=== PATIENT | female | born 1955 | race Caucasian/White ===

== ENCOUNTER 2016-11-30 21:09 | Inpatient (IN) | payer OTHER ==
[~2016-11-30] VITALS: Ht 162.6 cm; Wt 90.4 kg
--- NOTE | 2016-11-30 23:30 | NUR ---
Pt Admission to [facility] Room 2030 from [facility] Pt arrived at approximately 2230 on a gurney to room 2030 with Heparin running at 1100 Units/HR on the Cardiac Heparin Protocol. Pt is AOx3, ALEXIS, ambulatory, VSS. Pt's medication reconciliation is completed and there are some medications that have been DC'd due to the medication prolonging the QT. Pt has been made aware of this but does not know which medications they are at this time. Pt does have Sjgren's syndrome, which causes the pt to have severe dry mouth and dry eyes. Pt takes [place] for the Sjgren's syndrome.
[2016-11-30 23:41] VITALS: BP 145/84; PULSE 73; RESP 16; O2SAT 100
[2016-12-01] VITALS (17 sets, daily range): BP systolic 100–147; BP diastolic 52–84; PULSE 74–84; RESP 14–20; O2SAT 95–99
--- NOTE | 2016-12-01 00:09 | PCM.HPMED ---
Subjective Date of Service Dec 01, 2016 Primary Provider: Admitting Physician: Neil Oliver MD Primary Care Physician: Douglas Cameron MD Attending Physician: Neil Oliver MD Chief Complaint: Chest pain History of Present Illness: Ms. Krishna is a 61-year-old female with past medical history of CAD with prior DC status post stent placement in August 2007, Sjogren syndrome, hypertension. Presented to [facility] secondary to chest pain. Patient states no recent history of angina, however this morning she was undergoing physical therapy and developed chest discomfort/pain which was located on the left side of her chest and radiated to her left arm, with accompanying nausea. She states this felt very similar to her previous angina/DC almost 10 years prior. She states her chest pain is a 3 out of 10 located midsternally, pain increases on palpation. She also states headache, chronic in nature. Nausea with movement. Denies abdominal complaints. EKG and [place] showed nonspecific ST changes and an initial troponin was 0.06 and repeat troponin was 1.22. She was given ASA, beta noelle, nitroglycerin paste (could not dissolve sublingual tablet secondary to Sjogren's), & morphine. Review of Systems: A comprehensive review of systems was conducted with the patient and found to be negative except as above in the history of present illness. Allergies Coded Allergies: bupropion (Verified Allergy, Unknown, 12/01/16) Home Medications Atorvastatin 40 mg by mouth daily Fluticasone nasal spray 2 sprays daily Gabapentin 300 mg in the morning, 900 mg in the evening Levothyroxine 125 g daily [place] 300 mg in the evening Losartan 12.5 mg by mouth twice a day Metoprolol 12.5 mg by mouth daily Prazosin 5 mg by mouth daily Protriptyline 10 mg daily Prozac 20 mg daily Topamax 100 mg daily Trazodone 50 mg in the evening PMH Sjogren syndrome Hypertension 032 Bilateral feet fracture Spondylolisthesis PTSD Borderline personality disorder Depressive disorder Migraine headaches Surgical History Cholecystectomy Vaginal hysterectomy Right Oophorectomy Family History Father: Osteoarthritis, age 79 complications CHF Mother: age 70 of ovarian cancer 2 Sisters: Osteoarthritis, goiter, tremor, reflux disease, bone marrow dyscrasia , personality disorder, eating disorder 2 children sons: alcohol abuse, smoking, diabetes Social History Hx Alcohol Use: Yes (rare) Hx Substance Use: No Hx Tobacco Use: No Living Arrangement: with Family Exam Vital Signs Vital Sign - Last Date Time Temp Pulse Resp B/P Pulse Ox O2 Delivery O2 Flow Rate FiO2 11/30/16 23:41 36.9 73 16 145/84 100 Room Air Exam General: Sitting up in hospital bed in no acute distress, well-developed, well- nourished, appropriately interactive HEENT: Normocephalic, atraumatic. External ears without defect. Pupils equal, round, and reactive to light and accommodation. Anicteric sclerae, moist conjunctivae, and no lid lag. Oropharynx free of erythema and cobble stoning with moist mucosa. Neck: Supple with full range of motion. No jugular venous distension. Cardiovascular: Regular rate and rhythm with no murmurs, rubs, or gallops appreciated Pulmonary: Clear to auscultation bilaterally with no crackles, wheezes, or rhonchi. Normal respiratory effort with no use of accessory muscles. Abdomen: Bowel tones present. Soft, nontender, nondistended. Extremities: No clubbing, cyanosis, edema, or lymphadenopathy appreciated. Skin: Normal temperature, turgor, and texture; no rash, ulcers, or subcutaneous nodules appreciated. Neurological: Cranial nerves grossly intact. Psychiatric: Normal mood and affect. Alert and oriented to person, place, and time. Lab and Diagnostics X-Rays, CTs and MRIs Per [facility]: CT angiogram chest Impression: 1. No pulmonary embolus 2. No aortic aneurysm or dissection 3. Mild mosaic attenuation, otherwise unremarkable lungs CXR 1 view Impression: Normal single view chest 12-lead ECG Per [facility] Prolonged QT ST depression slight inferior leads. No ST elevation Assessment & Plan Ms. Krishna is a 61-year-old female with past medical history of CAD with prior DC status post stent placement in August 2007 admitted for NSTEMI NSTEMI. Trazodone admission. Ongoing - Cardiology consult, Dr. Jefferson - Continue home ASA - Continue beta noelle - Continue nitroglycerin paste - Continue morphine when necessary - Continue home atorvastatin - Continue heparin drip Hypertension. Present on admission. Ongoing - Continue home losartan - Continue home metoprolol - Continue home prazosin Hyperlipidemia. Present on admission. Ongoing - Continue home atorvastatin Multiple psychiatric diagnoses. Present on admission. Ongoing - PTSD, borderline personality disorder, depressive disorder - Hold trazodone secondary to possible QT prolongation Sjogren syndrome. Present on admission. Ongoing - Continue home pilocarpine Migraine headaches. Present on admission. Ongoing - Hold home topiramate secondary to QT prolongation Insomnia. Present on admission. Ongoing - Hold home Vistaril secondary to QT prolongation Hypothyroidism. Present on admission. Ongoing - Continue home Synthroid Patient Status: Patient was admitted under inpatient status with expected length of stay greater than two midnights due to severity of presenting symptoms , risk of adverse event, and complexity of treatment plan. Pain Evaluation: Adequate Pain Control VTE Prophylaxis: Other (on cardiac protocol heparin) Resuscitation Status: CPR: Attempt Resuscitation Attending Statement The patient was seen and examined together with Dr. Holt on 12/01 and I agree with the history, exam and plan as outlined in the note above. MARLEE HOLT DO Dec 01, 2016 00:09 Neil Oliver MD Dec 01, 2016 04:05
[2016-12-01] MEDS ORDERED: Ondansetron 2 mg/mL 2 mL Inj IVPUSH PRN ×2 (00:10→14:10)
[2016-12-01] MEDS ORDERED: Alum-Mag Hydrox-Simeth 30 mL Suspension PO PRN (00:10)
[2016-12-01] MEDS ORDERED: Polyethylene Glycol (PEG) 17 Gm Powder PO PRN (00:10)
[2016-12-01] MEDS ORDERED: HYDR-3090 PO (00:26)
[2016-12-01] MEDS ORDERED: Heparin 5,000 Unit/mL Inj IVPUSH PRN (00:30)
[2016-12-01] MEDS ORDERED: Heparin 25K Unit/500mL 0.45 NS 25,000 UNIT in IV Premix 1 EACH IV SCH (00:30)
[2016-12-01] MEDS ORDERED: HYDR-3797 PO (00:32)
[2016-12-01] MEDS ORDERED: HYDR-3089 PO (01:07)
[2016-12-01] MEDS ORDERED: ASPI-973 PO (01:22)
[2016-12-01] MEDS ORDERED: PROT5TAB PO (01:22)
[2016-12-01] MEDS ORDERED: FLUO20TA28 PO (01:22)
[2016-12-01] MEDS ORDERED: LOSA25TA21 PO (01:22)
[2016-12-01] MEDS ORDERED: TRAZ-115 PO (01:22)
[2016-12-01] MEDS ORDERED: PILO5TAB2 PO (01:22)
[2016-12-01] MEDS ORDERED: HYDR200T PO (01:22)
[2016-12-01] MEDS ORDERED: ATOR40TA69 PO (01:22)
[2016-12-01] MEDS ORDERED: PRAZ5CAP3 PO (01:22)
[2016-12-01] MEDS ORDERED: GABA-502 PO ×2 (01:22)
[2016-12-01] MEDS ORDERED: METO25TA6 PO (01:22)
[2016-12-01] MEDS ORDERED: LITH300T2 PO (01:22)
[2016-12-01] MEDS ORDERED: TOPI-31 PO (01:22)
[2016-12-01] MEDS ORDERED: LEVO125T94 PO (01:22)
[2016-12-01] MEDS ORDERED: Hydroxychloroqine 200 mg Tablet PO SCH (02:40)
[2016-12-01] MEDS ORDERED: hydrOXYzine Pamoate 25 mg Capsule PO PRN (02:40)
--- NOTE | 2016-12-01 06:30 | NUR ---
Nitro Paste Pt had nitropaste applied to the chest at 2140 while still at [place]. Pt's nitro paste was removed at 0600 this AM.
[2016-12-01] MEDS ORDERED: PROTRIPTYLINE PO SCH ×2 (08:30→13:20)
[2016-12-01 09:04] LABS: BASOPHILS % (AUTO) 0.3 % (0-3); EOSINOPHILS % (AUTO) 4.3 % (0-5); MONOCYTES % (AUTO) 7.3 % (4-12); Mean Corpuscular Hemoglobin 30.2 pg (27.0-35.0); Mean Corpuscular Volume 94.8 fL (81-100); NEUTROPHILS % (AUTO) 74.5 % (40-74); Platelet Count 379 bil/L (150-400)
--- NOTE | 2016-12-01 09:20 | NUR ---
Chest pain Stat EKG/Dr. Ortez @ bedside. Labs ordered. Heparin gtt infusing.
[2016-12-01 09:30] LABS: INR 0.95 ratio
--- NOTE | 2016-12-01 09:45 | NUR ---
To Battalion Fire Chief
[2016-12-01] MEDS ORDERED: Heparin 10,000 Unit/1,000 mL NS Premix IV ONE (10:06)
[2016-12-01] MEDS ORDERED: Heparin 1,000 Units/500 mL NS Premix IV ONE (10:06)
[2016-12-01] MEDS ORDERED: Heparin 1,000 Unit/mL 10 mL Inj ONE ×2 (10:06→10:52)
[2016-12-01] MEDS ORDERED: 0.9% Sodium Chloride 1,000 ML ONE (10:06)
[2016-12-01] MEDS ORDERED: fentaNYL-PF 50 mCg/mL 2 mL Inj ONE ×2 (10:39→11:00)
--- NOTE | 2016-12-01 10:41 | NUR ---
Social Work: Screen D: Per EMR review, pt is a 61 year old female admitted for NSTEMI. Pt is [place] [employer] insurance. PCP is Douglas Cameron MD. NOK is Ananda Krsihna, spouse. Advanced directives not on chart. No Readmit score entered at this time. Pt is currently off the floor for emergent cardiac cath procedure. A: Pt who lives in [place] with her spouse. Pt is I at baseline. P: Anticipate pt to discharge home via POV once medically stable; JACK WINDER to continue to follow pt's clinical course and assess for unmet needs. WALT Maxwell
[2016-12-01] MEDS ORDERED: Nitroglycerin 50,000 mcg/250 mL D5W Premix IV ONE (11:10)
[2016-12-01] MEDS ORDERED: Abciximab Bolus 2 mg/mL 5 mL Inj ONE (11:37)
[2016-12-01] MEDS ORDERED: [UNRECOGNIZED DRUG - OTHER] IV SCH ×2 (11:55)
[2016-12-01] MEDS ORDERED: ABCIXIMAB IV SCH ×2 (11:55)
[2016-12-01] MEDS ORDERED: Abciximab Bolus 2 mg/mL 5 mL Inj IV ONE (11:55)
[2016-12-01] MEDS ORDERED: Lidocaine 1%/Epi 1:100,000 30 mL MDV ONE (12:18)
--- NOTE | 2016-12-01 12:35 | NUR ---
Returned post CVL w/ Stent for CCU Recovery Rt groin starclose; slight ooze. (Rheopro bolus given in bundle tier and labeler, gtt infusing now.) Distal DPs 1+, palp, equal. Pt drowsy, denies pain or discomfort., VVS w/ BP 129/71, SR 84, no ectopy. Rm air sat 95%, resps 16. @ bedside.
--- NOTE | 2016-12-01 13:32 | PCM.PNMED ---
Subjective Date of Service Dec 01, 2016 Subjective The patient continued to complain of dull substernal chest pain, dry mouth, and anxiety not significantly changed from baseline upon initial evaluation. Around 9am the patient began to manifest acutely worsening chest pain with ECG changes and was taken emergently to slab miller operator where she was found to have occlusion of the ramus of the LAD proximal to prior stent treated with additional drug eluding stent. Upon re-evaluation following return from the slab miller operator the patient was quite somnolent and her overriding concern was over the resumption of her home psychiatric, analgesic, and migraine prophylactic medication regimen. Comprehensive ROS negative except as outlined above. Exam Vital Signs Vital Sign - Last Date Time Temp Pulse Resp B/P Pulse Ox O2 Delivery O2 Flow Rate FiO2 12/01/16 12:35 36.2 83 16 129/71 95 Room Air Intake and Output 11/30/16 11/30/16 12/01/16 Cumulative From/Thru 15:00 23:00 07:00 11/30/16 23:30 - 12/01/16 06:36 Intake Total 169 ml 169 ml Output Total 800 ml 800 ml Balance -631 ml -631 ml Intake Oral 50 ml 50 ml IV Total 119 ml 119 ml Output Urine Total 800 ml 800 ml Exam Gen: A/O x3 pleasant somnolent woman in moderate acute distress secondary to chest pain and anxiety upon initial evaluation Neck: Supple, non tender, no thyromegaly, no JVD HEENT: PERRL, EOMI, no scleral icterus, no conjunctival pallor, mucous membranes very dry CV: RRR, no murmurs rubs or gallops Resp: Lungs CTA BL, no wheezing rales or rhonchi Abd: Soft, non tender, no organomegaly, no rebound or guarding Extr: No clubbing cyanosis or edema Neuro: CN 2-12 grossly intact, no focal neurologic deficit Psych: Patient acutely anxious and obsessive about medication regimen IVs and Medications IV Fluids 250 ml NS delivered with IV meds Medications Reviewed: Medications were reviewed in detail Lab and Diagnostics Item Value Date Time Red Blood Count 3.88 mil/mm3 L 12/01/16 0855 Hematocrit 36.8 % 12/01/16 0855 Mean Corpuscular Volume 94.8 fL 12/01/16 0855 Mean Corpuscular Hemoglobin 30.2 pg 12/01/16 0855 Mean Corpuscular Hemoglobin Concent 31.8 % L 12/01/16 0855 Red Cell Distribution Width 14.7 % 12/01/16 0855 Neutrophils (%) (Auto) 74.5 % H 12/01/16 0855 Lymphocytes (%) (Auto) 13.5 % L 12/01/16 0855 Monocytes (%) (Auto) 7.3 % 12/01/16 0855 Eosinophils (%) (Auto) 4.3 % 12/01/16 0855 Basophils (%) (Auto) 0.3 % 12/01/16 0855 Estimat Glomerular Filtration Rate 105 mL/min 12/01/16 0855 Calcium Level 9.2 mg/dL 12/01/16 0855 Total Bilirubin 0.4 mg/dL 12/01/16 0855 Aspartate Amino Transf (AST/SGOT) 86 U/L H 12/01/16 0855 Alanine Aminotransferase (ALT/SGPT) 24 U/L 12/01/16 0855 Alkaline Phosphatase 122 U/L 12/01/16 0855 Total Creatine Kinase 1015 U/L H 12/01/16 0855 Creatine Kinase MB 139.3 ng/mL *H 12/01/16 0855 Creatine Kinase MB % 13.7 % H 12/01/16 0855 Total Protein 7.0 g/dL 12/01/16 0855 Albumin 3.6 g/dL 12/01/16 0855 Prothrombin Time 10.2 sec 12/01/16 0855 Prothromb Time International Ratio 0.95 ratio 12/01/16 08 Result Diagram: 12/01/16 0855 12/01/16 08 X-Rays, CTs and MRIs Per [facility]: CT angiogram chest Impression: 1. No pulmonary embolus 2. No aortic aneurysm or dissection 3. Mild mosaic attenuation, otherwise unremarkable lungs CXR 1 view Impression: Normal single view chest 12-lead ECG Per [facility] Prolonged QT ST depression slight inferior leads. No ST elevation Additional Diagnostics Cardiac Cath with official report pending Assessment & Plan Ms. Krishna is a 61-year-old female with past medical history of CAD with prior [place] status post stent placement in August 2007 admitted for NSTEMI. The patient subsequently manifested acute chest worsening of chest pain with concerning ECG changes and was taken to slab miller operator emergently where she was found to have an occlusion of the LAD proximal to prior LAD stent treated with drug eluding stent per report by Dr. Ortez NSTEMI. Trazodone admission. Ongoing - Cardiology consult, Dr. Ortez - Patient abruptly manifested acute chest pain with ECG changes taken to lab clerk emergently by Dr. Ortez - Drug eluding stent placed in the LAD proximal to prior LAD stent - Continue home ASA - Continue beta noelle - Continue nitroglycerin paste - Continue morphine when necessary - Continue home atorvastatin - Fondaparinux per Cardiology orders Hypertension. Present on admission. Ongoing - Continue home losartan - Continue home metoprolol - Continue home prazosin Hyperlipidemia. Present on admission. Ongoing - Continue home atorvastatin Multiple psychiatric diagnoses. Present on admission. Ongoing - PTSD, borderline personality disorder, depressive disorder - Resumed psychiatric meds post Cath - Continue home Prozac - Continue home Protriptyline - Continue home [place] Sjogren syndrome. Present on admission. Ongoing - Continue home pilocarpine Migraine headaches. Present on admission. Ongoing - Resumed topiramate Insomnia. Present on admission. Ongoing - Resumed Vistaril Hypothyroidism. Present on admission. Ongoing - Continued home Synthroid Recent L5-S1 surgical fusion, POA, acute. Active -Patient anti-platelet therapy for this procedure which together with surgical contribution to inflammatory milieu may have contributed to ACS -Continued home opiate analgesia Patient Status: Patient will likely be able to DC home with no needs early next week pending course of recovery from cardiac cath. Pain Evaluation: Adequate Pain Control GI Prophylaxis: H2 noelle VTE Prophylaxis: Other (on cardiac protocol heparin, transitioned to Fondaparinux) Resuscitation Status: CPR: Attempt Resuscitation Attending Statement The patient was seen and examined together with Dr. Nunes on 12/01/2016 and I agree with the history, exam and plan as outlined in the note above. . Darinel Nunes DO Dec 01, 2016 13:32 Lorenzo Kohler MD Dec 01, 2016 17:40
[2016-12-01] MEDS ORDERED: HYDROcodone-APAP 10-325 mg PO PRN (13:45)
[2016-12-01] MEDS ORDERED: 0.9% Sodium Chloride 800 ML IV ONE (14:10)
[2016-12-01] MEDS: HYDROcodone-APAP 5-325 mg Tablet PO PRN (16:29)
--- NOTE | 2016-12-01 18:00 | NUR ---
Starclose site ooze Continuing slow ooze from Rt groin starclose site; Dr. Ortez @ bedside->Lido injection successful @ stopping ooze. VVS. Continues to be free of chest pain. Sinus rhythm 80s, no ectopy. Rheopro to continue until 1900 per order.
--- NOTE | 2016-12-01 19:00 | NUR ---
Back Pain/ Rt groin site now stable, without ooze or hematoma. Denies chest pain. Currently c/o back pain and rt leg "spasms, which pt states is related to her recent Laminectomy. Vicodin plus MSo4 admin with partial relief obtained. Pt's home meds given earlier, including Gabapentin. Continue to monitor closely.
--- NOTE | 2016-12-01 19:01 | NUR ---
Tay solano'beba
[2016-12-01] MEDS: hydrOXYzine Pamoate 25 mg Capsule PO PRN (21:29)
[2016-12-01] MEDS: [UNRECOGNIZED DRUG - OTHER] PO SCH (21:30)
--- NOTE | 2016-12-01 22:00 | CONS ---
[address] [address] CONSULTATION REPORT PATIENT: PEDRITO SEO : 1955 MR#: [id number] ADMIT: 11/30/2016 JOB ID: [id number] DATE OF SERVICE: 12/01/2016 CHIEF COMPLAINT: Hospitalist consult given admission with chest pain and [id number] NJ. HISTORY OF PRESENT ILLNESS: The patient is a 61-year-old woman with past medical history significant for Sjogren syndrome, as well as fairly recent laminectomy procedure of her lower back performed on November 12. She says she was taken off aspirin at that time but able to start it shortly thereafter. She has a history of stenting of an unknown vessel back in [place] in 2007. She also has history of hypertension. She said she has been participating in rehab for her back and developed chest discomfort that was located on the left side, radiated to her left arm. She had some associated nausea and she felt that this was very similar to her previous anginal symptoms about 10 years ago. She was admitted for rule out to [facility] and ultimately had a normal troponin initially and then ruled in at 1.22. She was transferred here late yesterday evening on a heparin drip. Nitroglycerin was not given because it was felt that it would not dissolve in her mouth given her Sjogren syndrome. Since her transfer, she has remained on heparin, and in speaking with her today, she still is having 3/10 to 4/10 chest discomfort. This has not really resolved. We gave her a nitroglycerin with a little bit of fluid and this did bring down the chest pain to about 2/10 but did not resolve it. Prior to this event, she has not had any problems with chest pain, chest pressure, shortness of breath, orthopnea, PND, lower extremity edema, palpitations, presyncope, syncope. PAST MEDICAL HISTORY/PROBLEM LIST: 1. Sjogren syndrome. 2. Hypertension. 3. History of fractures of her feet. 4. PTSD. 5. History of borderline personality disorder, depressive disorder. MEDICATIONS: At home include: 1. Lipitor 40 mg daily. 2. Fluticasone nasal spray. 3. Gabapentin. 4. Levothyroxine 125 mcg daily. 5. [place] 300 mg in the evening. 6. Losartan 12.5 by mouth b.i.d. 7. Metoprolol 12.5 daily. 8. Prazosin 5 mg daily. 9. Nortriptyline 10 mg daily. 10. Prozac 20 daily. 11. Topamax 100 mg daily. 12. Trazodone 50 mg in the evening. ALLERGIES: BUPROPION. SOCIAL HISTORY: No tobacco use. Rare alcohol use. FAMILY HISTORY: No early coronary disease. REVIEW OF SYSTEMS: Overall health: No fevers, chills, night sweats, or weight loss. GI; She denies problems with ulcers, blood in her stool, bleeding hemorrhoids. Neuro: She had recent back surgery but does not have any plans for subsequent back surgeries. Musculoskeletal: No joint pain or swelling. Heme: No easy bruising or bleeding. Endocrine: No heat or cold intolerance. Rheumatologic: Has Sjogren's syndrome. Pulmonary: No history of shortness of breath, asthma or wheezing. Endocrine: No heat or cold intolerance. ENT: No difficulty swallowing, no difficulty hearing. Optho: No acute issues. Psych: No acute issues. All other review of systems on a 12-point review of systems are negative. PHYSICAL EXAMINATION: Blood pressure is 136/74, heart rate 84. She is afebrile. Sats are 95% on room air. General: In no acute distress. Speaking in full sentences without apparent shortness of breath. Head and neck exam: Normocephalic, atraumatic. Neck: No JV distention. Heart exam: Regular rate and rhythm without obvious murmurs, gallops, rubs appreciated. Lungs clear to auscultation. Vascular: No carotid bruits. Back: No CVA tenderness to palpation. Had previous surgery there so is very careful. Abdomen soft, nontender. Extremities: Warm, no edema. Derm: No skin breakdown. ENT: Dry mouth associated with Sjogren syndrome. Ophtho: No acute vision changes. Psych: Appropriate mood and affect. LABORATORIES: Show a white count 7, H and H 11.7, 36.8, platelets of 379,000. Chemistry shows a sodium 139, potassium 3.9, chloride and bicarb 103 and 22 respectively. BUN and creatinine 8 and 0.79. Glucose mildly elevated at 123. AST 86. Followup troponins not obtained. However, she has an elevated CK. Her initial EKGs from November 30 showed sinus rhythm with poor R-wave progression suggestive of possible anterior NJ. We did not have any EKGs until this morning. This was in the setting of 08/10 to 09/07 chest pain. This shows sinus rhythm with Q waves anteriorly, however, with subtle ST elevations in I, aVL, V4 , V5, as well as possibly V3. This represents a change in her EKG. This would suggest the possibility of a high lateral vessel. IMPRESSION: The patient developed chest pain which is classic. She had elevated troponin. She actually has elevated CK. She has been on heparin. She has had some acute EKG changes (subtle ST elevations) at this juncture. She has chest pain that has not really resolved since admission. PLAN: I have discussed taking her to cardiac catheterization. She understands the risks and benefits and agreed to proceed. We will take her to the recyclable materials collector now. I discussed with her the different types of stents. She has no contraindications to a drug-eluting stent. She does not feel she will be having any recurrent back surgeries or other surgeries in the near future. I spent 35 minutes reviewing the [facility] records, speaking with an examining the patient. Once the ECG was obtained, I immediately called for the recyclable materials collector to come in. JUNIE
[2016-12-02] VITALS (9 sets, daily range): BP systolic 95–138; BP diastolic 55–77; PULSE 59–84; RESP 16–20; O2SAT 96–100
--- NOTE | 2016-12-02 00:45 | CS94 ---
[address] [address] DIAGNOSTIC CARDIAC CATHETERIZATION PATIENT: PEDRITO SEO : 1955 MR#: [id number] ADMIT: 11/30/2016 JOB ID: [id number] SERVICE DATE: 12/01/2016 PROCEDURES PERFORMED: 1. Coronary angiography. 2. Intravascular ultrasound of the ramus intermedius. 3. Balloon angioplasty with stent placed to the ramus intermedius. INDICATIONS: This is a 61-year-old woman with history of coronary disease and a stent in unknown vessel who presented yesterday with chest discomfort, came with non-STEMI and now has some acute EKG changes (subtle ST elevations) suggesting a high lateral mid vessel. DESCRIPTION OF PROCEDURE: Informed consent was obtained. The patient was brought to the catheterization laboratory. Bilateral groins prepped and draped in the usual sterile fashion. The right femoral artery was anesthetized with lidocaine using micropuncture kit and modified Seldinger technique, access was obtained and a 5-Leb[place] sheath was advanced. A 5-[place]eb[place] JL4 catheter was advanced over a wire and used to cannulate the left coronary artery. Standard angiographic views obtained. This catheter was removed and a 5-[place]eb[place] JR4 catheter was advanced over a wire and used to cannulate the right coronary artery. Standard angiographic views obtained. The cardiac catheterization revealed a previously placed LAD stent which appeared occluded with collaterals filling via right to left collaterals. However, there was evidence for a ruptured plaque with associated thrombus in the very proximal portion of the ramus intermedius. Given the EKG findings and the patient's current situation, this was felt to be the culprit lesion. Next, a 6-Lebanese CLS 3.5 guide was advanced over a wire and used to cannulate the left coronary artery. Angiography was obtained. Heparin was given for anticoagulation with ACTs checked during the case. A [place] wire was advanced across the area of stenosis. A 2.5 x 12 mm balloon was advanced to the area of stenosis and inflated to nominal pressures. IVUS was advanced into the vessel. This revealed that there was a thrombus in the area of interest, revealed that the more distal vessel was in the range of 3.2-3.3 mm. The more proximal vessel ranged at about 3.5 mm. Next, a 3 x 12 mm balloon was advanced to the area of stenosis, was also inflated to nominal pressures, documenting that indeed a 3.5 mm stent would work (and showing no resolution of the finding) . Before placement of the stent in the proximal ramus intermedius, an additional [place] wire was advanced into the continuation of the circumflex artery. A 3.5 x 18 mm Xience stent was advanced to the area of stenosis with careful placement in multiple views to get coverage of the area of stenosis which extended up very close to the left main. This was deployed at nominal pressures. IVUS was advanced into the stented area and this revealed that the stent could use post dilation. Therefore, a 3.5 x 15 mm noncompliant balloon was advanced to the area of stenting. This was inflated to nominal pressures. After stent placement and post dilation, IVUS was again advanced and this revealed that the stent was well apposed and well expanded in the area of interest. There is a small area that extends into the left main, but this needed to be done to have suitable coverage of the stenosis. Followup angiographic views revealed an excellent angiographic result with no significant stenosis, no dissection. The case was ended. Angiographically, the right femoral access site was reviewed prior to achieving hemostasis with a StarClose device. No complications. FINDINGS: CORONARIES: Left main: This is a fairly short vessel, angiographically normal. Ramus intermedius: This has a filling defect in its proximal portion extending up just to the left main. Filling is around JOSELITO-2. Continuation of the circumflex artery gives rise to a branching obtuse marginal branch, has no evidence of obstructive disease and has JOSELITO-3 flow. There is a stent in the proximal left anterior descending artery which is occluded. Injection of the right coronary artery reveals that there is complete collateralization of the distal vessel beyond the stented area. Right coronary artery: This has no evidence of obstructive disease. As noted, there are right to left collaterals appreciated. As noted, the ramus intermedius was wired. It was initially ballooned. It was assessed with IVUS, and then stented with a 3.5 x 18 mm Xience stent. This was also post dilated to get good apposition in the proximal vessel. I was IVUS after post dilation. This revealed very good apposition of the stent. Again, slight extension just up to the left main but no obstruction or problems with the adjacent circumflex branch. HEMODYNAMICS: Please see cath report. MEDICATIONS DURING THE CASE: Heparin for anticoagulation with therapeutic ACT throughout. The patient was given 600 mg of Plavix during the case as well as a ReoPro bolus, given the presence of thrombus in the proximal vessel with a stent that extended right to the left main, plans were made for ReoPro drip. IMPRESSION: 1. Evidence for a ruptured plaque with associated thrombus in the proximal portion of the ramus intermedius extending right up to the left main. Evidence for an occluded left anterior descending artery stent which was placed a number of years ago, with evidence of right to left collaterals filling the distal bed. 2. No evidence of other obstructive disease. MTDD
[2016-12-02] MEDS: HYDROcodone-APAP 5-325 mg Tablet PO PRN ×2 (03:04→14:52)
[2016-12-02 05:06] LABS: Mean Corpuscular Hemoglobin 29.6 pg (27.0-35.0); Mean Corpuscular Volume 93.9 fL (81-100)
--- NOTE | 2016-12-02 05:24 | NUR ---
Pain/Mentation Pt woke up with 10/10 back pain and was given 2 [place] tabs and ice was applied with a slight repositioning with pillows so that pt was not directly on her back. On pain reassessment pt was sleeping and no longer appeared to be in the pain the way that she was earlier. Pt needs to be reoriented when she wakes up.
[2016-12-02 05:29] LABS: INR 0.94 ratio
[2016-12-02 05:42] LABS: Magnesium 1.9 mg/dL (1.6-2.6); Phosphorus 4.5 mg/dL (2.5-4.9)
[2016-12-02] MEDS: [UNRECOGNIZED DRUG - OTHER] PO SCH ×2 (08:30→21:08)
--- NOTE | 2016-12-02 13:43 | PCM.PNMED ---
Subjective Date of Service Dec 02, 2016 Subjective Was improved this morning, able to eat and drink. Overnight patient continued to have some pain that was treated with [place] with at least some resolution. Dr. Ortez saw the patient yesterday and performed a catheterization, identifying evidence of ruptured plaques in the proximal portion of the ramus intermedius extending up to the left main coronary artery. There is also evidence for clogging of the LAD within the stent. Echo is currently pending. Exam Vital Signs Vital Sign - Last Date Time Temp Pulse Resp B/P Pulse Ox O2 Delivery O2 Flow Rate FiO2 12/02/16 10:30 68 12/02/16 08:45 36.4 20 138/76 97 Room Air Intake and Output 12/01/16 12/01/16 12/02/16 Cumulative From/Thru 15:00 23:00 07:00 11/30/16 23:30 - 12/02/16 05:22 Intake Total 1610 ml 300 ml 2079 ml Output Total 950 ml 1750 ml Balance 660 ml 300 ml 329 ml Intake Oral 650 ml 300 ml 1000 ml IV Total 960 ml 1079 ml Output Urine Total 950 ml 1750 ml # Voids 3 2 5 # Bowel Movements 0 0 0 Exam General: Awake and alert and oriented Cardio: Regular rate and rhythm. Respiratory: CTA bilaterally without wheezing Abdomen: Soft, nontender, positive bowel sounds, nondistended Extremities: Mild edema without cyanosis Neuro: Grossly intact Psych: Appropriate mood and affect IVs and Medications Medications Reviewed: Medications were reviewed in detail Lab and Diagnostics Result Diagram: 12/02/167 12/02/16446 X-Rays, CTs and MRIs Per [facility]: CT angiogram chest Impression: 1. No pulmonary embolus 2. No aortic aneurysm or dissection 3. Mild mosaic attenuation, otherwise unremarkable lungs CXR 1 view Impression: Normal single view chest 12-lead ECG Per [facility] Prolonged QT ST depression slight inferior leads. No ST elevation Additional Diagnostics Cardiac Cath with official report pending Assessment & Plan Ms. Krishna is a 61-year-old female with past medical history of CAD with prior OH status post stent placement in August 2007 admitted for NSTEMI. The patient subsequently manifested acute chest worsening of chest pain with concerning ECG changes and was taken to solar lab technician emergently where she was found to have an occlusion of the LAD proximal to prior LAD stent treated with drug eluding stent per report by Dr. Ortez NSTEMI. Present on admission. Ongoing - Cardiology consult, Dr. Ortez - Patient abruptly manifested acute chest pain with ECG changes taken to agriculture laborer emergently by Dr. Ortez - Drug eluding stent placed in the LAD proximal to prior LAD stent - Continue home ASA, beta noelle, atorvastatin, nitroglycerin when necessary, morphine when necessary - Continue Plavix - Echo pending; awaiting cardiology interpretation Hypertension. Present on admission. Ongoing - Continue home losartan, metoprolol, prazosin Hyperlipidemia. Present on admission. Ongoing - Continue home atorvastatin Multiple psychiatric diagnoses. Present on admission. Ongoing - PTSD, borderline personality disorder, depressive disorder - Resumed psychiatric meds post Cath - Continue home Prozac, protriptyline, lithium Sjogren syndrome. Present on admission. Ongoing - Continue home pilocarpine Migraine headaches. Present on admission. Ongoing - Resumed topiramate Insomnia. Present on admission. Ongoing - Resumed trazodone Hypothyroidism. Present on admission. Ongoing - Continued home Synthroid Recent L5-S1 surgical fusion, POA, acute. Active -Patient anti-platelet therapy for this procedure which together with surgical contribution to inflammatory milieu may have contributed to ACS -Continued home opiate analgesia Patient Status: Discharge home tomorrow pending cardiology recommendations. Pain Evaluation: Adequate Pain Control GI Prophylaxis: H2 noelle VTE Prophylaxis: Other (on cardiac protocol heparin, transitioned to Fondaparinux) Resuscitation Status: CPR: Attempt Resuscitation Attending Statement The patient was seen and examined together with Dr. Lewis on 12/02/2016 and I agree with the history, exam and plan as outlined in the note above. . Ellis Lewis DO Dec 02, 2016 13:43 Lorenzo Kohler MD Dec 03, 2016 09:13
--- NOTE | 2016-12-02 17:43 | DRSVH ---
[facility] [address] [place] [address] Echocardiogram Report Name: PEDRITO SEO Study Date: 12/02/2016 Height: 64 in Hospital Exam Location: [facility] Weight: 203 lb Gender: Other BSA: 2.0 m2 : 1955 Age: 61 yrs BP: 125/77 mmHg Reason For Study: MD-Acute Ordering Physician: Performed By: El Berry Interpretation Summary 1. Normal left ventricular size, wall thickness and systolic function with an estimated EF of 55%. Wall motion abnormalities are as noted below. 2. Normal right ventricular size and systolic function. 3. No evidence for significant valvular pathology There is no old study for comparison Procedure: A two-dimensional transthoracic echocardiogram with color flow and Doppler was performed. The study quality was technically adequate. There is no prior echocardiogram noted for this patient. The patient was in normal sinus rhythm during the exam. Left Ventricle: The left ventricle is normal in size. There is normal left ventricular wall thickness. Left ventricular ejection fraction is estimated to be 55%. Hypokinesis of the apical anterior septum, the apical anterior wall, and the distal 2/3s of the lateral wall. Right Ventricle: The right ventricle is normal in size, thickness and function. Atria: No color doppler evidence for an ASD. Mitral Valve: The mitral valve is normal. There is trace mitral regurgitation. Aortic Valve: The aortic valve is grossly normal. No aortic regurgitation is present. Tricuspid Valve: The tricuspid valve is not well visualized, but is grossly normal. There is mild tricuspid regurgitation. The right ventricular systolic pressure is estimated at 28 mmHg assuming a right atrial pressure of 3 mm Hg. Pulmonic Valve: The pulmonic valve is not well visualized. Great Vessels: The aortic root is normal size. The dimensions of the ascending aorta are normal. The pulmonary artery is normal size. The IVC is of normal diameter and collapses greater than 50% with a sniff. This suggests a low right atrial pressure of 3 mm Hg. Pericardium/ Pleura There is no pericardial effusion. There is no pleural effusion. MMode/2D Measurements & Calculations LVIDd: 4.8 cm RA long axis LVOT diam: 2.4 cm LVIDs: 2.8 cm LA A2 area: 11.4 cm AoV Opening FS: 41.3 % LA A4 area: 21.6 cm RA area EPSS: 0.47 cm LA length (vol) Ao root diam IVSd: 0.86 cm : 15.1 cm LVPWd: 0.87 cm LA vol: 44.5 ml RA vol asc Aorta Diam LA vol index : 45.3 ml RA Ao Arch Diam (Prox : 23.0 mm2 Trans): 2.5 cm IVC diam: 1.3 cm LV mosqueda. diameter/BSA LV sys. diameter/BSA RVD1 (basal) TAPSE: 2.6 cm (cm/m^2): 2.5 (cm/m^2): 1.4 Doppler Measurements & Calculations Ao V2 max MV E max sandeep MV E/A: 0.83 TR max sandeep : 167.2 cm/sec : 66.8 cm/sec Med Peak E' Sandeep : 250.3 cm/sec Ao max P.2 mmHg MV A max sandeep TR max PG Ao mean P.5 mmHg : 80.2 cm/sec E/E' med: 10.2 : 25.1 mmHg LVOT Max Sandeep Lat Peak E' Sandeep PA V2 max : 106.1 cm/sec : 107.2 cm/sec E/E' lat: 9.6 PA mean PG MEGHAN(I,D): 3.0 cm E/e' average: 9.9 : 2.5 mmHg sev ratio: 0.68 MV dec time: 0.22 sec Ao V2 mean LV V1 max PG PA V2 mean : 110.7 cm/sec : 75.2 cm/sec Ao V2 VTI: 30.7 cmLV V1 VTI: 20.9 cmPA pr(Accel) MEGHAN(Gabriella Blanca): 2.8 cm2 : 35.3 mmHg MEGHAN indexed to [facility] (cm^2/m^2): 1.5 Reading Physician:05:42 PM
--- NOTE | 2016-12-02 18:15 | PROG NOTE ---
[address] [address] PROGRESS NOTE PATIENT: PEDRITO SEO : 1955 MR#: [id number] ADMIT: 11/30/2016 JOB ID: [id number] DATE: 12/02/2016 CHIEF COMPLAINT: The patient is doing well today. Her back is bothering her from lying flat. She denies chest pain or chest pressure or shortness of breath. PHYSICAL EXAMINATION: Blood pressure 138/76, afebrile, heart rate 84, sats are 97% on room air. General: In no acute distress. Speaking in full sentences without apparent shortness of breath. Head and neck exam: Normocephalic, atraumatic. Heart: Regular rate and rhythm. Lungs: Clear to auscultation. Abdomen is soft. Extremities: Warm with no edema, 1 to 2+ distal pulses. Skin: Without breakdown appreciated. Neurologic: Alert and oriented x3. Gait is not tested. CURRENT MEDICATIONS: Include [place], fluoxetine 20 mg daily, gabapentin 300 mg b.i.d., metoprolol 25 b.i.d., Plavix 75 daily, famotidine 20 mg b.i.d., atorvastatin 40 daily, aspirin 325 daily, levothyroxine 125 mcg daily, Vistaril 25 q.h.s. p.r.n., Minipress 5 mg q.h.s., lithium carbonate 300 mg daily, topiramate 100 mg daily, losartan 12.5 daily. CURRENT LABS: Show white count 5.7, H and H 10.7 and 33.9, platelets of 316,000. Chemistry shows sodium 139, potassium 4 BUN and creatinine 9 and 0.8. AST somewhat decreased from yesterday from 86. Troponin 1.79 drawn yesterday. As noted, elevated CK, CK-MB. Cholesterol 99, LDL 26.6, and HDL 58. IMPRESSION: The patient is doing well. She denies any chest pain, chest pressure, shortness of breath. Her main issues resolve around some back discomfort from being in bed after cardiac catheterization. She seems to be taking her medications well and swallowing adequately. She is on aspirin and Plavix. She is also on other medications which are good for heart and her blood pressure. PLANS/RECOMMENDATION: 1. Given the fact that she was admitted with an FL, will keep her for another night. I have encouraged her to get up and walk around to see how she feels and make sure that she feels well enough so that she may be able to go home tomorrow. 2. I again told her it would be very important to take Plavix and aspirin regularly, and we will talk about that at length again before discharge. I spent 30 minutes speaking with Mr. Seo, examining her and making recommendations during this visit. She is encouraged to get up and walk. JUNIE
--- NOTE | 2016-12-02 20:03 | NUR ---
Ambulating in room & ramos/Plavix education reinforced VVS; denies cpn. SR 70s, no ectopy. Using walker due to recent laminectomy; steady when up. Taking meds as ordered; teaching reviewed re importance of Plavix. Spouse @ bedside.
[2016-12-02] MEDS: hydrOXYzine Pamoate 25 mg Capsule PO PRN (21:08)
[2016-12-03 03:02] VITALS: BP 90/45; PULSE 62; RESP 16; O2SAT 97
[2016-12-03 04:40] VITALS: PULSE 93
[2016-12-03] MEDS: HYDROcodone-APAP 5-325 mg Tablet PO PRN (06:29)
[2016-12-03 08:00] VITALS: BP 93/51; PULSE 60; RESP 16; O2SAT 98
[2016-12-03] MEDS: [UNRECOGNIZED DRUG - OTHER] PO SCH (08:18)
[2016-12-03 10:03] VITALS: BP 88/45
[2016-12-03 10:18] VITALS: PULSE 56
[2016-12-03] MEDS ORDERED: 0.9% Sodium Chloride 500 ML IV ONE (10:50)
[2016-12-03 12:00] VITALS: BP 101/54; RESP 17; O2SAT 100
--- NOTE | 2016-12-03 12:40 | NUR ---
Hypotension Patient hypotensive systolic pressure in evelyn 80s-90s. 750mL total fluid boluses given. Patient BP WNL. Will continue to monitor.
--- NOTE | 2016-12-03 14:17 | PCM.DIMED ---
Discharge Instructions Date of Service Dec 03, 2016 Dates of Hospitalization Nov 30, 2016 at 23:33 Discharge Diagnosis Discharge Diagnosis NSTEMI. Present on admission. Stable Hypertension. Present on admission. Ongoing Hyperlipidemia. Present on admission. Ongoing Multiple psychiatric diagnoses. Present on admission. Ongoing Sjogren syndrome. Present on admission. Ongoing Migraine headaches. Present on admission. Ongoing Insomnia. Present on admission. Ongoing Hypothyroidism. Present on admission. Ongoing Recent L5-S1 surgical fusion, POA, acute. Active . Medication Instructions Additional med instructions We are decreasing your dose of Prazosin to 1 mg daily, and cutting your dose of Metoprolol in half to 12.5 mg, I will supply you with a 1 month supply of both dosages. Please follow up with your mental health provider about the change in Prazosin. Diet Discharge Diet: Heart Healthy Activity Discharge Activity: Limited until seen by PCP (gradually increase your physical activity as your body allows, if you get sore or fatigued then rest.) Call your provider Call your provider for: Fever or Chills, Shortness of breath, Bleeding, Chest pain, Vomitting, Excessive diarrhea, Weakness (unilateral), Other (If you have difficulty with your PTSD being worsened by the reduced dose of Prazosin please inform your primary care or mental health provider for recomendations.) Patient Instructions Follow-up plan Follow up with your primary care provider Dr. Cameron within 1 week. Follow up with Dr. Ortez or another of her providers within 2 weeks. You should also follow up with your mental health provider as soon as you are able. Follow-up Provider: Douglas Cameron MD Follow-up with PCP in: 1 week Provider: Caroline Ortez MD Follow-up in: 2 weeks Darinel Nunes DO Dec 03, 2016 14:17
[2016-12-03] MEDS ORDERED: PRAZ5CAP3 PO (14:18)
[2016-12-03] MEDS ORDERED: ASPI325T32 PO (15:11)
[2016-12-03] MEDS ORDERED: CLOP75TA3 PO (15:11)
--- NOTE | 2016-12-03 15:51 | NUR ---
Social Work Note: Discharge Data& Assessment: Per pt is medically ready to discharge home via POV. SW met with pt and pt at bedside to confirm discharge plan and assess for any unmet needs. Pt is currently open with Amena MALONE RN and PT. Per MD order, pt will resume Amena MALONE RN and PT at time of discharge. SW spoke with Breezy with [facility] and notified him of pt discharge, access provided. Pt and pt denies any other needs. All updated and agreeable to plan. Plan: Per pt is medically improved from N STEMI and ready to discharge home via POV with resume Amena MALONE RN and PT. All updated and agreeable to plan. No other discharge needs identified. WALT Crouch
--- NOTE | 2016-12-03 16:04 | NUR ---
Evaluation completed. Please go to "Notes" then click on "Assessments and Notes" (bottom left corner of screen). Then select appropriate discipline tab on top of screen.
--- NOTE | 2016-12-03 16:08 | PCM.DC.MED ---
Discharge Summary Date of Service Dec 03, 2016 Dates of Hospitalization Date of Hospital Admission Nov 30, 2016 at 23:33 Date of Discharge: Dec 03, 2016 Providers: Admitting Physician: Neil Oliver MD Primary Care Physician: Douglas Cameron MD Attending Physician: Neil Oliver MD Diagnosis at Time of Discharge Diagnosis at Time of Discharge NSTEMI. Present on admission. Stable Hypertension. Present on admission. Ongoing Hyperlipidemia. Present on admission. Ongoing Multiple psychiatric diagnoses. Present on admission. Ongoing Sjogren syndrome. Present on admission. Ongoing Migraine headaches. Present on admission. Ongoing Insomnia. Present on admission. Ongoing Hypothyroidism. Present on admission. Ongoing Recent L5-S1 surgical fusion, POA, acute. Active . Consultations Cardiology with Dr. Ortez Procedures XRay, CTs & MRIs Per [facility]: CT angiogram chest Impression: 1. No pulmonary embolus 2. No aortic aneurysm or dissection 3. Mild mosaic attenuation, otherwise unremarkable lungs CXR 1 view Impression: Normal single view chest ECG 12 Lead Per [facility] Prolonged QT ST depression slight inferior leads. No ST elevation Other Diagnostics Cardiac Cath with official report pending Brief History Taken From History of Present Illness Composed by Dr. Dmitriy Holt on 11/30/16 Ms. Krishna is a 61-year-old female with past medical history of CAD with prior AL status post stent placement in August 2007, Sjogren syndrome, hypertension. Presented to [facility] secondary to chest pain. Patient states no recent history of angina, however this morning she was undergoing physical therapy and developed chest discomfort/pain which was located on the left side of her chest and radiated to her left arm, with accompanying nausea. She states this felt very similar to her previous angina/AL almost 10 years prior. She states her chest pain is a 3 out of 10 located midsternally, pain increases on palpation. She also states headache, chronic in nature. Nausea with movement. Denies abdominal complaints. EKG and idbey showed nonspecific ST changes and an initial troponin was 0.06 and repeat troponin was 1.22. She was given ASA, beta noelle, nitroglycerin paste (could not dissolve sublingual tablet secondary to Sjogren's), & morphine. . Hospital Course Ms. Krishna is a 61-year-old female with past medical history of CAD with prior AL status post stent placement in August 2007 admitted for NSTEMI on 11/30/16. The patient subsequently manifested acute chest worsening of chest pain with concerning ECG changes on 12/01/16 and was taken to electrical laboratory technician emergently where she was found to have an occlusion of the LAD proximal to prior LAD stent treated with drug eluding stent per report by Dr. Ortez. The patient's post procedural course was complicated by hypotension, thus her home dosing of Prazosin which she uses for PTSD was reduced to 1 mg daily. Upon discharge dual anti-platelet therapy was resumed per Dr. Ortez. NSTEMI. Present on admission. Ongoing - Cardiology consult, Dr. Ortez - Patient abruptly manifested acute chest pain with ECG changes taken to [facility] emergently by Dr. Ortez on 12/01/16 - Drug eluding stent placed in the LAD proximal to prior LAD stent - Continued home ASA, beta noelle, atorvastatin, nitroglycerin when necessary, morphine when necessary - Continued Plavix Hypertension. Present on admission. Ongoing - Continued home losartan, metoprolol - prazosin at reduced dosage upon discharge Hyperlipidemia. Present on admission. Ongoing - Continued home atorvastatin Multiple psychiatric diagnoses. Present on admission. Ongoing - PTSD, borderline personality disorder, depressive disorder - Resumed psychiatric meds post Cath - Continued home Prozac, protriptyline, lithium Sjogren syndrome. Present on admission. Ongoing - Continued home pilocarpine Migraine headaches. Present on admission. Ongoing - Resumed topiramate Insomnia. Present on admission. Ongoing - Resumed trazodone Hypothyroidism. Present on admission. Ongoing - Continued home Synthroid Recent L5-S1 surgical fusion, POA, acute. Active -Patient anti-platelet therapy for this procedure which together with surgical contribution to inflammatory milieu may have contributed to ACS -Continued home opiate analgesia . Exam Vital Signs (Last) Date Time Temp Pulse Resp B/P Pulse Ox O2 Delivery O2 Flow Rate FiO2 12/03/16 12:00 36.6 17 101/54 100 Room Air 12/03/16 10:18 56 Exam Gen: A/O x3 pleasant obese woman in NAD Neck: Supple, non tender, no thyromegaly, no JVD HEENT: PERRL, EOMI, no scleral icterus, no conjunctival pallor, mucous membranes very dry CV: RRR, no murmurs rubs or gallops Resp: Lungs CTA BL, no wheezing rales or rhonchi Abd: Soft, non tender, no organomegaly, no rebound or guarding Extr: No clubbing cyanosis or edema Neuro: CN 2-12 grossly intact, no focal neurologic deficit Psych: Appropriate mood and affect with some tangential thinking Test 12/01/16 08:55 12/01/16 14:30 12/02/16 04:47 12/03/16 05:02 Neutrophils (%) (Auto) 74.5% (40-74) Lymphocytes (%) (Auto) 13.5% (14-46) Monocytes (%) (Auto) 7.3% (4-12) Eosinophils (%) (Auto) 4.3% (0-5) Basophils (%) (Auto) 0.3% (0-3) Total Creatine Kinase 1015U/L (21-215) Creatine Kinase MB 139.3ng/mL (0.0-5.3) Creatine Kinase MB % 13.7% (0.0-5.0) Troponin T 1.79ug/L (0.0-0.011) Activated Partial Thromboplast Time 73.1sec (22.8-33.0) White Blood Count 5.7th/mm3 (3.8-10.1) Red Blood Count 3.61mil/mm3 (3.90-5.20) Mean Corpuscular Volume 93.9fL (81-100) Mean Corpuscular Hemoglobin 29.6pg (27.0-35.0) Mean Corpuscular Hemoglobin Concent 31.6% (32.0-37.0) Red Cell Distribution Width 15.0% (12.3-15.4) Platelet Count 316bil/L (150-400) Prothrombin Time 10.0sec (8.1-12.5) Prothromb Time International Ratio 0.94ratio Phosphorus Level 4.5mg/dL (2.5-4.9) Magnesium Level 1.9mg/dL (1.6-2.6) Total Bilirubin 0.3mg/dL (0.0-1.2) Aspartate Amino Transf (AST/SGOT) 58U/L (0-50) Alanine Aminotransferase (ALT/SGPT) 20U/L (0-32) Alkaline Phosphatase 108U/L (25-165) Total Protein 6.0g/dL (6.4-8.4) Albumin 3.3g/dL (3.4-5.0) Triglycerides Level 72mg/dL (0-149) Cholesterol Level 99mg/dL (100-199) LDL Cholesterol, Calculated 26.600mg/dL (0-99) VLDL Cholesterol 14.400mg/dL HDL Cholesterol 58mg/dL (>39) Cholesterol/HDL Ratio 1.71 (0.0-4.4) Hemoglobin 11.1g/dL (12.0-15.6) Hematocrit 35.0% (35.0-46.0) Sodium Level 141mEq/L (134-144) Potassium Level 4.2mEq/L (3.5-5.2) Chloride Level 107mEq/L (97-108) Carbon Dioxide Level 20mmol/L (18-29) Blood Urea Nitrogen 13mg/dL (8-27) Creatinine 0.83mg/dL (0.57-1.00) Estimat Glomerular Filtration Rate 99mL/min (>59) Glucose Level 102mg/dL (60-99) Calcium Level 9.2mg/dL (8.5-10.1) Discharge Medications Discharge Medications Aspirin (Aspirin) 325 Mg Tablet 325 MG PO DAILY Prescribed by: EDMAR NICHOLAS DO Atorvastatin Calcium (Atorvastatin Calcium) 40 Mg Tablet 40 MG PO DAILY ( Reported) Clopidogrel Bisulfate (Plavix) 75 Mg Tablet 75 MG PO DAILY Prescribed by: EDMAR NICHOLAS DO Fluoxetine (Fluoxetine) 20 Mg Tablet 20 MG PO DAILY (Reported) Gabapentin (Gabapentin) 300 Mg Capsule 300 MG PO BID (Reported) Gabapentin (Gabapentin) 300 Mg Capsule 300 MG PO DAILY (Reported) [place] Carbonate ([place] Carbonate) 300 Mg Tablet 300 MG PO DAILY (Reported) Metoprolol Tartrate (Metoprolol Tartrate) 25 Mg Tablet 12.5 MG PO BID (Reported ) Pilocarpine (Pilocarpine) 5 Mg Tablet 5 MG PO BID (Reported) Prazosin (Prazosin) 5 Mg Capsule 1 MG PO HS Prescribed by: EDMAR NICHOLAS DO Protriptyline (Protriptyline) 5 Mg Tablet 5 MG PO BID (Reported) Topiramate (Topiramate) 100 Mg Tablet 100 MG PO DAILY (Reported) Trazodone (Trazodone) 50 Mg Tablet 50 MG PO HS (Reported) As needed Hydrocodone-Acetaminophen 10-300 mg (Hydrocodone-Acetaminophen 10-300 mg) 1 Each Tablet 1 TABLET PO Q4H PRN PRN For Pain (Reported) Hydroxyzine Pamoate (HydrOXYzine Pamoate) 25 Mg Capsule 25 MG PO HS PRN PRN For Insomnia (Reported) Miscellaneous Medications Hydroxychloroquine Sulfate (Plaquenil) 200 Mg Tablet 200 MG PO (Reported) Levothyroxine Sodium (Levo-T) 125 Mcg Tablet 125 MCG PO (Reported) Losartan Potassium (Losartan Potassium) 25 Mg Tablet 12.5 MG PO (Reported) Additional med instructions We are decreasing your dose of Prazosin to 1 mg daily, and cutting your dose of Metoprolol in half to 12.5 mg, I will supply you with a 1 month supply of both dosages. Please follow up with your mental health provider about the change in Prazosin. Followup Plan Follow-up plan Follow up with your primary care provider Dr. Cameron within 1 week. Follow up with Dr. Ortez or another of her providers within 2 weeks. You should also follow up with your mental health provider as soon as you are able. Discharge Diet: Heart Healthy Discharge Activity: Limited until seen by PCP (gradually increase your physical activity as your body allows, if you get sore or fatigued then rest.) Follow-up Provider: Douglas Cameron MD Follow-up with PCP in: 1 week Provider: Caroline Ortez MD Follow-up in: 2 weeks Time spent Time spent counseling the patient and coordinating discharge > 35 minutes copies to: Douglas Cameron MD, David E DO Dec 03, 2016 16:08
--- NOTE | 2016-12-03 16:08 | NUR ---
Discharge Patient denies chest pain/discomfort. Ambulating independently in room. VSS. Discharge information and medication teaching printed and reviewed verbally with patient and her . All questions answered. Patient left until via WC accompanied by her and discharged home via personal vehicle.
--- NOTE | 2016-12-03 17:50 | PROG NOTE ---
[address] [address] PROGRESS NOTE PATIENT: PEDRITO SEO : 1955 MR#: [id number] ADMIT: 11/30/2016 JOB ID: [id number] DATE: 12/03/2016 CHIEF COMPLAINT: The patient is doing well. Denies chest pain, shortness of breath. She is on a fairly large dose of Minipress which she is using for possible PTSD. She had some lower blood pressures overnight, although she was not overtly symptomatic with it. I held her a.m. blood pressure medications daily, gave her a fluid bolus and the blood pressures have come up. She is feeling fine. She has gotten up and does not feel any lightheadedness or dizziness. She denies chest pain, chest pressure. Telemetry shows no arrhythmias. PHYSICAL EXAMINATION: Blood pressure 101/54, she is afebrile. Sats are 100% on room air. Heart rates in the mid 50s to 60s. General: In no acute distress. Speaking in full sentences without apparent shortness of breath. Head and neck exam: Normocephalic, atraumatic. Neck: No obvious JV distention. Heart: Regular rate and rhythm. I do not appreciate murmurs, gallops, rubs appreciated. Lungs clear. Abdomen is soft. Back: Some discomfort with palpation. Groin site looks good with minor bruising. No hematoma. Good distal pulses. Skin without breakdown appreciated. Alert and oriented x3. Gait is not tested, but she says she has been walking around. CURRENT MEDICATIONS: 1. Losartan 12.5 daily which we held this morning. 2. Topiramate 100 mg daily. 3. Aspirin 325. 4. Gabapentin 300 b.i.d. 5. Fluoxetine 20 mg daily. 6. Plavix 75 daily. 7. Lipitor 40 daily. 8. [place] carbonate 300 mg daily. 9. Levothyroxine 125 mcg daily. 10. Pilocarpine 5 mg. 11. Hydroxyzine. 12. Trazodone. 13. Morphine. 14. Prazosin which we have changed to 1 mg q.h.s. 15. Metoprolol was also held but we are going to change it to 12.5 mg b.i.d. LABS: Show a stable hematocrit. Chemistry shows sodium 141, potassium 4.2, chloride and bicarb 107 and 26. BUN and creatinine 13 and 0.83. An echocardiogram showed overall preserved LV systolic function with wall motion abnormalities as expected. IMPRESSION: The patient is doing very well at this time. She did have some lower blood pressures last night, but my suspicion is this could be related to the fact that: 1. She has had a heart attack. 2. She is getting a fairly large dose of Minipress in the evening. PLAN: 1. Continue with aspirin and Plavix. I have emphasized to the patient that this is critical that she take this medication regularly. 2. We are going to decrease her metoprolol dose for now to 12.5 b.i.d. We will continue with losartan. 3. Decrease her Minipress dose to 1 mg q.h.s. given relative hypotension seen at night, although this was asymptomatic. Continue with her other medications including statins. 4. If her blood pressure stays up, we can give her some metoprolol and my sense is that she should be able to go home today with close followup with me in approximately two weeks. I spent 30 minutes speaking with Ms. Seo, examining her, reviewing the meds and discussing the extreme importance of compliance with aSA and plavix MTDD
--- NOTE | 2016-12-03 18:08 | PCM.PNMED ---
Subjective Date of Service Dec 03, 2016 Subjective Patient reported that her chest pain was essentially resolved. She states that her weakness is much improved since admission but is still not quite back to baseline. She reports that her mentation is quite a bit more clear today compared to the day of admission. Otherwise she has no complaints beyond her chronic back pain. Comprehensive ROS negative except as listed above. Exam Vital Signs Vital Sign - Last Date Time Temp Pulse Resp B/P Pulse Ox O2 Delivery O2 Flow Rate FiO2 12/03/16 12:00 36.6 17 101/54 100 Room Air 12/03/16 10:18 56 Intake and Output 12/02/16 12/02/16 12/03/16 Cumulative From/Thru 15:00 23:00 07:00 11/30/16 23:30 - 12/03/16 05:11 Intake Total 1020 ml 200 ml 3299 ml Output Total 400 ml 475 ml 2625 ml Balance 620 ml -275 ml 674 ml Intake Oral 1000 ml 200 ml 2200 ml IV Total 20 ml 1099 ml Output Urine Total 400 ml 475 ml 2625 ml # Voids 5 10 # Bowel Movements 2 0 2 Exam Gen: A/O x3 pleasant obese woman in NAD Neck: Supple, non tender, no thyromegaly, no JVD HEENT: PERRL, EOMI, no scleral icterus, no conjunctival pallor, mucous membranes very dry CV: RRR, no murmurs rubs or gallops Resp: Lungs CTA BL, no wheezing rales or rhonchi Abd: Soft, non tender, no organomegaly, no rebound or guarding Extr: No clubbing cyanosis or edema Neuro: CN 2-12 grossly intact, no focal neurologic deficit Psych: Appropriate mood and affect with some tangential thinking IVs and Medications Medications Reviewed: Medications were reviewed in detail Lab and Diagnostics Item Value Date Time Hemoglobin 11.1 g/dL L 12/03/16 0502 Hematocrit 35.0 % 12/03/16 0502 Estimat Glomerular Filtration Rate 99 mL/min 12/03/16 0502 Calcium Level 9.2 mg/dL 12/03/16 0502 Result Diagram: 12/03/16 0502 12/03/16 0502 X-Rays, CTs and MRIs Per [facility]: CT angiogram chest Impression: 1. No pulmonary embolus 2. No aortic aneurysm or dissection 3. Mild mosaic attenuation, otherwise unremarkable lungs CXR 1 view Impression: Normal single view chest 12-lead ECG Per [facility] Prolonged QT ST depression slight inferior leads. No ST elevation Additional Diagnostics Cardiac Cath with official report pending Assessment & Plan Ms. Krishna is a 61-year-old female with past medical history of CAD with prior [place] status post stent placement in August 2007 admitted for NSTEMI on 11/30/16. The patient subsequently manifested acute chest worsening of chest pain with concerning ECG changes on 12/01/16 and was taken to finishing lab technician emergently where she was found to have an occlusion of the LAD proximal to prior LAD stent treated with drug eluding stent per report by Dr. Ortez. The patient's post procedural course was complicated by hypotension, thus her home dosing of Prazosin which she uses for PTSD was reduced to 1 mg daily. Upon discharge dual anti-platelet therapy was resumed per Dr. Ortez. NSTEMI. Present on admission. Ongoing - Cardiology consult, Dr. Ortez - Patient abruptly manifested acute chest pain with ECG changes taken to slab grinder emergently by Dr. Ortez on 12/01/16 - Drug eluding stent placed in the LAD proximal to prior LAD stent - Continued home ASA, beta noelle, atorvastatin, nitroglycerin when necessary, morphine when necessary - Continued Plavix Hypertension. Present on admission. Ongoing - Continued home losartan, metoprolol - prazosin at reduced dosage upon discharge Hyperlipidemia. Present on admission. Ongoing - Continued home atorvastatin Multiple psychiatric diagnoses. Present on admission. Ongoing - PTSD, borderline personality disorder, depressive disorder - Resumed psychiatric meds post Cath - Continued home Prozac, protriptyline, lithium Sjogren syndrome. Present on admission. Ongoing - Continued home pilocarpine Migraine headaches. Present on admission. Ongoing - Resumed topiramate Insomnia. Present on admission. Ongoing - Resumed trazodone Hypothyroidism. Present on admission. Ongoing - Continued home Synthroid Recent L5-S1 surgical fusion, POA, acute. Active -Patient anti-platelet therapy for this procedure which together with surgical contribution to inflammatory milieu may have contributed to ACS -Continued home opiate analgesia Patient was able to DC home per recommendation by Dr. Ortez, an order was placed to continue her home health physical therapy for her post surgical recovery process from L5 S1 fusion. Pain Evaluation: Adequate Pain Control GI Prophylaxis: H2 noelle VTE Prophylaxis: Other (on cardiac protocol heparin, transitioned to Fondaparinux) Resuscitation Status: CPR: Attempt Resuscitation Attending Statement The patient was seen and examined together with Dr. Nunes on 12/03/16 and I agree with the history, exam and plan as outlined in the note above. Darinel Nunes DO Dec 03, 2016 18:08 Jelly Dale DO Dec 07, 2016 15:30
== END 2016-12-03 16:30 | disposition home health service (06) | DRG 247 ==
LOC: PCC 23:33
PROVIDERS: ADMIT Hospitalist; ATTEND Hospitalist
PROC: 027034Z Dilation of Coronary Artery, One Artery with Drug-eluting Intraluminal Device, Percutaneous Approach (ICD-10-PCS; principal; 2016-12-01)
PROC: B2111ZZ Fluoroscopy of Multiple Coronary Arteries using Low Osmolar Contrast (ICD-10-PCS; 2016-12-01)
PROC: B240ZZ3 Ultrasonography of Single Coronary Artery, Intravascular (ICD-10-PCS; 2016-12-01)
DX: I21.4 Non-ST elevation (NSTEMI) myocardial infarction (principal); I10 Essential (primary) hypertension; E78.5 Hyperlipidemia, unspecified; F43.10 Post-traumatic stress disorder, unspecified; F60.3 Borderline personality disorder; F32.9 Major depressive disorder, single episode, unspecified; E03.9 Hypothyroidism, unspecified; G47.00 Insomnia, unspecified; M35.00 Sjogren syndrome, unspecified; G43.909 Migraine, unspecified, not intractable, without status migrainosus; I25.10 Atherosclerotic heart disease of native coronary artery without angina pectoris; Z95.5 Presence of coronary angioplasty implant and graft; Z98.890 Other specified postprocedural states; Z79.02 Long term (current) use of antithrombotics/antiplatelets